=== PATIENT | female | born 1950 | race Caucasian/White ===

== ENCOUNTER → 2016-11-13 | Outpatient (CLI) | payer MEDICARE ==
--- NOTE | 2016-11-13 22:17 | CT ---
EXAMINATION TYPE: CT brain wo con DATE OF EXAM: 11/13/2016 7:11 PM COMPARISON: 11/14/2013 INDICATION: Episode of blurred vision and lightheadedness 7 days ago. DLP: 1195.00 mGycm, Automated exposure control for dose reduction was used. CONTRAST: None CT of the brain is performed utilizing 3 mm thick sections through the posterior fossa and 3 mm thick sections through the remaining calvarium. Study is performed within 24 hours of arrival to the hosp [facility]. No abnormal hyperdensity is present to suggest an acute intracranial hemorrhage. No mass lesion is evident. No acute infarcts are evident. There is an old left occipital lobe infarct. Ventricles and sulci are appropriate for the patient age. Paranasal sinuses and mastoid air cells within the [id number] are clear. IMPRESSIONS: 1. Old left occipital lobe infarct.
== END | disposition home or self-care (01) ==
LOC: RADCTMAIN 18:52
PROVIDERS: ATTEND Internal Medicine
DX: H53.8 Other visual disturbances (principal); Z86.73 Personal history of transient ischemic attack (TIA), and cerebral infarction without residual deficits
CPT/HCPCS: 70450

== ENCOUNTER → 2017-09-01 | Outpatient (CLI) | payer MEDICARE ==
--- NOTE | 2017-09-01 11:23 | XR ---
EXAMINATION TYPE: XR tibia fibula RT DATE OF EXAM: 09/01/2017 CLINICAL HISTORY: pain TECHNIQUE: AP and lateral images of the right tibia and fibula are obtained. COMPARISON: None. FINDINGS: There is no acute fracture/dislocation evident. The joint spaces appear within normal gastelum its. No radiopaque foreign body identified. IMPRESSION: There is no acute fracture or dislocation seen. ICD 10 NO FRACTURE, INITIAL EVALUATION
== END | disposition home or self-care (01) ==
LOC: RADXRMAIN 10:59
PROVIDERS: ATTEND Emergency Medicine
DX: S80.11XA Contusion of right lower leg, initial encounter (principal)

== ENCOUNTER → 2018-07-03 | Outpatient (CLI) | payer OTHER, MEDICARE ==
[2018-07-03 11:00] LABS: HCT 44.5 % (34.0-46.0); HGB 15.3 gm/dL (11.4-16.0); MCH 33.9 pg (25.0-35.0); MCHC 34.3 g/dL (31.0-37.0); MCV 98.9 fL (80.0-100.0); Mean Platelet Volume 6.8; Platelet Count 263 k/uL (150-450); RDW 13.7 % (11.5-15.5); WBC 5.5 k/uL (3.8-10.6)
[2018-07-03 11:05] LABS: INR 1.2 (<1.2); Prothrombin Time 12.2 sec (9.0-12.0)
[2018-07-03 12:03] LABS: Erythrocyte Sedimentation Rate 44 mm/hr (0-20)
[2018-07-03 16:53] LABS: Rheumatoid Factor 6 IU/mL (0-15)
[2018-07-03 17:07] LABS: Albumin 4.3 g/dL (3.80-4.90); Albumin/Globulin Ratio 1.79 (1.20-2.10); Bilirubin, Conjugated 0.2 mg/dL (0.20-0.40); Bilirubin,Unconjugated 0.5 mg/dL; C Reactive Protein 1.1 mg/dL (0.0-0.8); Globulin 2.4 g/dL (2.1-3.7); Total Bilirubin 0.7 mg/dL (0.3-1.2); Total Protein 6.7 g/dL (6.2-8.2); Uric Acid 5.5 mg/dL (2.9-7.7)
[2018-07-03 18:03] LABS: Hepatitis A Antibody IgM Non-Reactive (Non-Reactive); Hepatitis B Core IgM Non-Reactive (Non-Reactive)
== END | disposition home or self-care (01) ==
LOC: LABWHC1 10:20
PROVIDERS: ATTEND Internal Medicine
DX: M25.571 Pain in right ankle and joints of right foot (principal); Z20.5 Contact with and (suspected) exposure to viral hepatitis; Z79.899 Other long term (current) drug therapy
CPT/HCPCS: 36415; 80074; 80076; 84550; 85027; 85610; 85652; 86140; 86431

== ENCOUNTER → 2018-10-04 | Outpatient (CLI) | payer OTHER, MEDICARE ==
--- NOTE | 2018-10-05 10:01 | US ---
EXAMINATION TYPE: US pelvis complete transvag DATE OF EXAM: 10/04/2018 COMPARISON: NONE CLINICAL HISTORY: N94.10 dyspareunia N95.0Postmenopausal. Pt states light vaginal bleeding x 1 month, not on HRT's TECHNIQUE: Transvaginal (TV) and Transabdominal (TA) . Transabdominal sonographic images of the pel vis were acquired. Transvaginal sonographic images were medically necessary to better assess the fol lowing anatomy: Uterus, ovaries and endometrium Date of LMP: 15 years ago EXAM MEASUREMENTS: Uterus: 8.8 x 3.4 x 4.4 cm Endometrial Stripe: 0.7 cm Large pt body habitus, difficult to penetrate TA and TV 1. Uterus: Anteverted Heterogeneous 2. Endometrium: Thickened for postmenopausal 3. Right Ovary: Obscured by overlying bowel gas 4. Left Ovary: Obscured by overlying bowel gas 5. Bilateral Adnexa: wnl 6. Posterior cul-de-sac: wnl IMPRESSION: 1. Endometrium is thickened for a postmenopausal female measuring 7 mm. Direct visualization is recom mended. 2. Uterine myometrium is slightly heterogenous although no discrete leiomyomas are seen. 3. Nonvisualization of the ovaries, obscured by bowel gas.
== END | disposition home or self-care (01) ==
LOC: RADUSWWP 16:20
PROVIDERS: ATTEND Obstetrics & Gynecology
DX: N95.0 Postmenopausal bleeding (principal); N94.10 Unspecified dyspareunia
CPT/HCPCS: 76830; 76856

== ENCOUNTER → 2018-10-29 | Outpatient (CLI) | payer OTHER, MEDICARE ==
[2018-10-29 18:01] LABS: INR 2.2 (<1.2); Prothrombin Time 21.5 sec (9.0-12.0)
== END | disposition home or self-care (01) ==
LOC: LABWHC1 17:30
PROVIDERS: ATTEND Internal Medicine
DX: Z51.81 Encounter for therapeutic drug level monitoring (principal); Z79.01 Long term (current) use of anticoagulants
CPT/HCPCS: 36415; 85610

== ENCOUNTER → 2019-02-11 | Outpatient (CLI) | payer MEDICARE ==
--- NOTE | 2019-02-11 13:54 | US ---
EXAMINATION TYPE: US venous doppler duplex LE RT DATE OF EXAM: 02/11/2019 1:34 PM COMPARISON: NONE CLINICAL HISTORY: M79.661,R22.41 PAIN AND SWELLING IN RT LEG. Right leg pain SIDE PERFORMED: Right TECHNIQUE: The lower extremity deep venous system is examined utilizing real time linear array sonog twan with graded compression, doppler sonography and color-flow sonography. VESSELS IMAGED: External Iliac Vein (EIV) Common Femoral Vein Deep Femoral Vein Greater Saphenous Vein * Femoral Vein Popliteal Vein Small Saphenous Vein * Proximal Calf Veins (* superficial vessels) Grayscale, color doppler, spectral doppler imaging performed of the deep veins of the right lower ext remity. There is normal flow, compressibility, vascular waveforms. Right Leg: Negative for DVT No evidence of DVT right leg. IMPRESSION: No sonographic evidence of deep venous thrombosis within the right lower extremity.
== END | disposition home or self-care (01) ==
LOC: RADUSWWP 13:02
PROVIDERS: ATTEND Internal Medicine
DX: R22.41 Localized swelling, mass and lump, right lower limb (principal); M79.661 Pain in right lower leg

== ENCOUNTER → 2019-04-13 | Outpatient (CLI) | payer MEDICARE ==
[2019-04-13 11:52] LABS: INR 1.8 (<1.2)
[2019-04-13 11:53] LABS: Prothrombin Time 17.4 sec (9.0-12.0)
[2019-04-13 12:05] LABS: HCT 42.7 % (34.0-46.0); HGB 14.5 gm/dL (11.4-16.0); MCH 33.4 pg (25.0-35.0); MCHC 33.9 g/dL (31.0-37.0); MCV 98.5 fL (80.0-100.0); Mean Platelet Volume 6.8; Platelet Count 281 k/uL (150-450); RBC 4.34 m/uL (3.80-5.40); RDW 14.1 % (11.5-15.5); WBC 4.9 k/uL (3.8-10.6)
[2019-04-13 21:44] LABS: African American GFR (CKD) 102.5 (60.0-200.0); Potassium 4.7 mmol/L (3.5-5.5)
[2019-04-15 14:06] LABS: Lyme IgG/IgM 0.86 Index
== END | disposition home or self-care (01) ==
LOC: LABWHC1 10:55
PROVIDERS: ATTEND Internal Medicine
DX: R50.9 Fever, unspecified (principal)
CPT/HCPCS: 36415; 80051; 82565; 84520; 85027; 85610; 86618; 87040

== ENCOUNTER → 2019-06-30 | Outpatient (CLI) | payer MEDICARE ==
--- NOTE | 2019-06-30 12:14 | CONS ---
CONSULTATION DATE OF SERVICE: 06/30/2019 A 69-year-old lady who has been evaluated in the Sleep Center for obstructive sleep apnea-hypopnea syndrome. HISTORY OF PRESENT ILLNESS/SLEEP-WAKE EVALUATION: Patient has been diagnosed in our Sleep Center with extremely severe obstructive sleep apnea in 2013. At that time, apnea-hypopnea index more than 81. Since that time patient is on treatment with CPAP and she continued to use treatment every night. Her sleep schedule from 10 - 12 midnight until 6 to 8 am. She wakes up from sleep up to 2 times with nocturia. She may take one nap during the day. [place] Sleepiness Scale is 4. PAST MEDICAL HISTORY: Patient continued to have atrial fibrillation, history of hypertension, stroke with changing of visual reyes, macular degeneration, gout. History of anal anal cancer status post chemotherapy and radiation in 2007. PAST SURGICAL HISTORY: Permanent pacemaker insertion, surgery on ocular. MEDICATIONS: Allopurinol, metoprolol, Warfarin and gabapentin. SOCIAL HISTORY: Positive for occasional smoking. Alcohol consumption rarely. FAMILY HISTORY: Hypertension, stroke, asthma, cancer, snoring. REVIEW OF SYSTEMS: Sometimes sleepiness during the day, episodes of nocturia. PHYSICAL EXAM: lady without distress, BP 150/83, HR 60, RR 16, height 5, 6-1/2, weight 278.8, body mass index 44.5, temperature 97.8, oxygen saturation at room air 98%. OROPHARYNX: Low position of soft palate Mallampati 3. Restriction of nasal breathing, especially on the left side. Wide neck 16 inches in circumference. HEART: Irregular heart tones. EXTREMITIES: Up to 1+ bilateral ankle edema. I checked patient's CPAP unit. CPAP pressure is 10 cm of water. Usage is every night more than 4 hours with average usage 8.9 hours per night. Machine does not have information about apnea-hypopnea index. IMPRESSION: 1. Extremely severe obstructive sleep apnea-hypopnea syndrome by results of sleep study in 2013. Patient continued to use her CPAP equipment every night but wake up with nocturia. She has episodes of excessive daytime sleepiness. 2. Low position of soft palate, wide neck, obstructive sleep apnea-hypopnea syndrome. 3. Obesity, body mass index 44.5. 4. Atrial fibrillation. 5. History of stroke. 6. Hypertension. 7. History of macular degeneration. 8. Status post macular surgery. 9. History of gout. 10.Status post permanent pacemaker insertion. 11.History of anal CA, status post chemotherapy and radiation therapy. PLAN: 1. CPAP titration for evaluation of effective CPAP pressure at the present time. Last titration more than 5 years ago. Patient continued to have atrial fibrillation and hypertension. 2. Losing weight. 3. Sleep hygiene with regular time in bed for at least 7-1/2 to 8 hours. 4. No driving if feeling sleepiness. Thank you very much for allowing me to participate in the management of your patient. Sincerely, Harshil Kennedy MD, PhD, FAASM Diplomat of [place] Materials Engineer of [facility] [place] MMODL / IJN: [id number] /
== END ==
LOC: SLEEP 10:12
PROVIDERS: ATTEND Internal Medicine
DX: G47.33 Obstructive sleep apnea (adult) (pediatric) (principal); R35.1 Nocturia; E66.9 Obesity, unspecified; I48.91 Unspecified atrial fibrillation; I10 Essential (primary) hypertension; H35.30 Unspecified macular degeneration; M10.9 Gout, unspecified; Z98.890 Other specified postprocedural states; Z86.73 Personal history of transient ischemic attack (TIA), and cerebral infarction without residual deficits; Z92.3 Personal history of irradiation; Z99.89 Dependence on other enabling machines and devices; Z68.41 Body mass index [BMI] 40.0-44.9, adult; Z92.21 Personal history of antineoplastic chemotherapy; F17.200 Nicotine dependence, unspecified, uncomplicated; Z79.01 Long term (current) use of anticoagulants; Z79.899 Other long term (current) drug therapy
CPT/HCPCS: 99211

== ENCOUNTER → 2020-03-08 | Outpatient (CLI) | payer MEDICARE ==
--- NOTE | 2020-03-09 07:09 | SFUN ---
SLEEP CENTER FOLLOW UP NOTE DATE OF SERVICE: 03/08/2020 This 70-year-old lady has been followed in Sleep Center for treatment of obstructive sleep apnea-hypopnea syndrome. The patient successfully continuing to use her equipment every night for the whole night. [place] Sleepiness Scale today is only 3, which is normal. I checked her CPAP unit. CPAP pressure is 10 cm of water. Usage is 27 out of 30 nights for more than 4 hours which is great compliance. Leak is 17 L/minute which is borderline. Apnea-hypopnea index is 1.4, which is absolutely normal. MEDICATIONS: Allopurinol, metoprolol, warfarin, gabapentin. PHYSICAL EXAMINATION: GENERAL: Patient in no distress. VITAL SIGNS: BP 131/81, HR 67, RR 15, weight 282.6 pounds, temperature 97.8, oxygen saturation on room air 94%., HEENT: PERRLA, EOMI, evaluation of oropharynx showed tongue protrudes midline. NECK: Supple, no JVD. Thyroid is not palpable. LUNGS: Clear to percussion and to auscultation. Good air exchange. No wheezing or rhonchi. HEART: S1, S2 regular. No murmurs, gallops, or rubs. ABDOMEN: Obese. EXTREMITIES: No clubbing or cyanosis. INSULATION ENGINEMAN: Awake, alert, and oriented X3. Cranial nerves 2 to 7 intact. There is no fasciculation or atrophy. noted. No focal deficits observed. IMPRESSION: 1. Obstructive sleep apnea-hypopnea syndrome. Patient demonstrated great compliance with treatment, benefitting from treatment. 2. Obesity. 3. History of atrial fibrillation. 4. History of stroke. 5. Hypertension. 6. History of gout. 7. History of macular degeneration, status post macular surgery. 8. Status post permanent pacemaker insertion. 9. History of anal carcinoma, status post chemotherapy and radiation therapy. PLAN: 1. Patient will continue to use PAP equipment every night for the whole night. 2. Sleep hygiene with regular time in bed for at least 7-1/2 to 8 hours. 3. Precautions related to driving. No driving if feeling sleepiness. 4. I will maintain all necessary prescription for PAP supplies including mask, tube, filters. 5. Watching weight. 6. No driving if feeling sleepiness. 7. Follow-up visit in 6 months or earlier if patient has any problems. Thank you very much for allowing me to participate in management of your patient. Sincerely, Harshil Kennedy MD, PhD, FAASM Diplomat of [employer] Development Expert of [facility] [place] SHILPA / SHYAM: [id number] /
== END | disposition home or self-care (01) ==
LOC: SLEEP 16:22
PROVIDERS: ATTEND Internal Medicine
DX: G47.33 Obstructive sleep apnea (adult) (pediatric) (principal); E66.9 Obesity, unspecified; I10 Essential (primary) hypertension; Z86.73 Personal history of transient ischemic attack (TIA), and cerebral infarction without residual deficits; Z86.79 Personal history of other diseases of the circulatory system; Z87.39 Personal history of other diseases of the musculoskeletal system and connective tissue; Z86.69 Personal history of other diseases of the nervous system and sense organs; Z85.048 Personal history of other malignant neoplasm of rectum, rectosigmoid junction, and anus; Z92.21 Personal history of antineoplastic chemotherapy; Z92.3 Personal history of irradiation; Z95.0 Presence of cardiac pacemaker; Z79.01 Long term (current) use of anticoagulants; Z79.899 Other long term (current) drug therapy

== ENCOUNTER → 2020-04-05 | Outpatient (CLI) | payer MEDICARE ==
[2020-04-05 15:22] LABS: Basophils # (A) 0.1 k/uL (0-0.2); Basophils % (A) 1 %; Eosinophils # (A) 0.1 k/uL (0-0.7); Eosinophils % (A) 2 %; HCT 46.3 % (34.0-46.0); HGB 15.2 gm/dL (11.4-16.0); Lymphocytes # (A) 1.6 k/uL (1.0-4.8); Lymphocytes % (A) 30 %; MCHC 32.8 g/dL (31.0-37.0); MCV 100.7 fL (80.0-100.0); Macrocytosis Slight; Mean Platelet Volume 7.4; Monocytes # (A) 0.4 k/uL (0-1.0); Monocytes % (A) 7 %; Neutrophils # (A) 3.1 k/uL (1.3-7.7); Neutrophils % (A) 58 %; Platelet Count 251 k/uL (150-450); RDW 13.7 % (11.5-15.5); WBC 5.3 k/uL (3.8-10.6)
[2020-04-06 01:16] LABS: African American GFR (CKD) 86.6 (60.0-200.0); Albumin 4.2 g/dL (3.80-4.90); Albumin/Globulin Ratio 1.83 (1.60-3.17); Anion Gap 9.7 mmol/L (4.00-12.00); Calcium 9.4 mg/dL (8.7-10.3); Carbon Dioxide 25.3 mmol/L (21.6-31.8); Chol/HDL Ratio 3.98; Globulin 2.3 g/dL (1.6-3.3); Non-African American GFR(CKD) 74.7 (60.0-200.0); Potassium 4.5 mmol/L (3.5-5.5); Total Bilirubin 0.7 mg/dL (0.2-1.2); Total Protein 6.5 g/dL (6.2-8.2); Uric Acid 6.6 mg/dL (2.9-7.7)
[2020-04-06 04:39] LABS: INR 1.92 (0.90-1.11)
== END | disposition home or self-care (01) ==
LOC: LABWHC1 14:23
PROVIDERS: ATTEND Internal Medicine
DX: I10 Essential (primary) hypertension (principal); M10.9 Gout, unspecified; M79.89 Other specified soft tissue disorders; Z79.01 Long term (current) use of anticoagulants
CPT/HCPCS: 36415; 80053; 80061; 84550; 85025; 85610

== ENCOUNTER → 2021-05-29 | Outpatient (CLI) | payer MEDICARE ==
--- NOTE | 2021-05-30 08:40 | SFUN ---
SLEEP CENTER FOLLOW UP NOTE DATE OF SERVICE: 05/29/2021 This 71-year-old lady has been followed in Sleep Center for treatment of obstructive sleep apnea-hypopnea syndrome. I saw the patient about 15 months ago. She continues to use her CPAP equipment every night, getting her supplies on time. [place] Sleepiness Scale today is only 2, which is perfect. I checked her CPAP unit. Pressure is 10 cm of water, usage 28/30 nights. Average usage 6 hours per night. Leak is 11 L/minute, which is normal. Apnea-hypopnea index is 1.3 which is perfect. MEDICATIONS: 1. Metoprolol 50 mg twice a day. 2. Warfarin 0.5 mg once a day. 3. Gabapentin 100 mg once a day. 4. Allopurinol 100 mg once a day. PHYSICAL EXAMINATION: GENERAL: Pleasant patient in no distress. VITAL SIGNS: BP 147/89, HR 85, RR 18, height 5 feet 6 inches, weight 269.6, temperature 97.0, oxygen saturation at room air 95%. HEENT: PERRLA, EOMI, evaluation of oropharynx showed tongue protrudes midline. NECK: Supple, no JVD. Thyroid is not palpable. LUNGS: Clear to percussion and to auscultation. Good air exchange. No wheezing or rhonchi. HEART: S1, S2 regular. No murmurs, gallops, or rubs. ABDOMEN: Soft and nontender. Bowel sounds are present. No organomegaly appreciated. EXTREMITIES: No clubbing or cyanosis. COMPUTATIONAL SCIENCES PROFESSOR: Awake, alert, and oriented X3. Cranial nerves 2 to 7 intact. There is no fasciculation or atrophy. noted. No focal deficits observed. IMPRESSION: 1. Obstructive sleep apnea-hypopnea syndrome. Patient demonstrated good compliance with treatment, benefitting from treatment. 2. History of atrial fibrillation. 3. Obesity. 4. History of stroke. 5. Hypertension. 6. History of gout. 7. History of macular degeneration, status post macular surgery. 8. Status post permanent pacemaker insertion. 9. History of an anal carcinoma, status post chemotherapy and radiation therapy. PLAN: 1. Patient will continue to use PAP equipment every night for the whole night. 2. Sleep hygiene with regular time in bed for at least 7-1/2 to 8 hours. 3. Precautions related to driving. No driving if feeling sleepiness. 4. I will maintain all necessary prescription for PAP supplies including mask, tube, filters. 5. Watching weight. 6. Follow-up visit in 6 months or earlier if patient has any problems. Thank you very much for allowing me to participate in the management of your patient. Sincerely, Harshil Kennedy MD, PhD, FAASM Diplomat of [employer] [place] [employer] Sleep Medicine Board of [employer] [place] [employer] Dubbing Machine Operator of [facility] [place] MMODL / EBERN: [id number] /
== END ==
LOC: SLEEP 16:23
PROVIDERS: ATTEND Internal Medicine
DX: G47.33 Obstructive sleep apnea (adult) (pediatric) (principal); E66.9 Obesity, unspecified; I48.91 Unspecified atrial fibrillation; I10 Essential (primary) hypertension; F17.200 Nicotine dependence, unspecified, uncomplicated; Z95.0 Presence of cardiac pacemaker; Z86.73 Personal history of transient ischemic attack (TIA), and cerebral infarction without residual deficits; Z87.39 Personal history of other diseases of the musculoskeletal system and connective tissue; Z86.69 Personal history of other diseases of the nervous system and sense organs; Z85.048 Personal history of other malignant neoplasm of rectum, rectosigmoid junction, and anus; Z79.01 Long term (current) use of anticoagulants; Z99.89 Dependence on other enabling machines and devices; Z98.890 Other specified postprocedural states

== ENCOUNTER → 2021-08-20 | Outpatient (CLI) | payer MEDICARE ==
--- NOTE | 2021-08-20 22:45 | BD ---
EXAMINATION TYPE: Axial Bone Density DATE OF EXAM: 08/20/2021 COMPARISON: Prior DEXA bone scan 2015. CLINICAL HISTORY: Postmenopausal female. Height: 5 FT 6 IN Weight: 271 FRAX RISK QUESTIONS: Alcohol (3 or more units per day): NO Family History (Parent hip fracture): NO Glucocorticoids (More than 3mos): NO (Ex: prednisone, prednisolone, methylprednisolone, dexamethasone, and hydrocortisone). History of Fracture in Adulthood: NO Secondary Osteoporosis: 1. Type 1 Diabetes: NO 2. Hyperthyroidism: NO 3. Menopause before 45: NO 4. Malnutrition: NO 5. Chronic liver disease: NO Rheumatoid Arthritis: NO Current Tobacco Use: YES RISK FACTORS HISTORY OF: Surgery to Spine/Hip(right/left)/Wrist (right/left): NO Family History of Osteoporosis: NO Active: YES Diet low in dairy products/other sources of calcium: NO Postmenopausal woman: YES Take estrogen and/or progesterone medications: NO Lost more than 2 inches in height since high school: YES Frequent falls: NO Poor Health: GOOD Hyperparathyroidism: NO Adrenal Insufficiency: NO MEDICATIONS: Additional Medications: METOPROLOL, WARFARIN, ALLOPURINOL, GABAPENTIN, Additional History: PACEMAKER EXAM MEASUREMENTS: Bone mineral densitometry was performed using the [employer] System. Bone mineral density as measured about the Lumbar spine is: ----- L1-L4(G/cm2): 1.306 T Score Values are as follows: ----- L2: 0.8 ----- L3: 0.7 ----- L4: 1.4 ----- L1-L4: 1.0 Bone mineral density has: INCREASED 2.9% since study of: 2015 Bone mineral density about the R hip (g/cm2): 1.053 Bone mineral density about the L hip (g/cm2): 1.032 T Score values are as follows: -----R Neck: 0.1 -----L Neck: 0.0 -----R Total: 0.4 -----L Total: 0.5 Bone mineral density has: DECREASED -5.4 % since study of: 2015 IMPRESSION: Normal (Values between +1 and -1 indicate normal bone mass). Consider repeating this study in 5 year s or sooner if there is some new clinical indication. NOTE: T-SCORE=SD OF THE YOUNG ADULT MEAN.
--- NOTE | 2021-08-21 12:08 | MM ---
Reason for exam: screening (asymptomatic). Last mammogram was performed 2 years and 4 months ago. History: Patient is postmenopausal, has history of other cancer at age 59, and had first child at age 33. Took hormonal contraceptives for 4 years. Physical Findings: A clinical breast exam by your physician is recommended on an annual basis and results should be correlated with mammographic findings. MG 3D Screening Mammo W/Cad Bilateral CC and MLO view(s) were taken. Prior study comparison: April 04, 2019, bilateral MG 3d screening mammo w/cad. May 29, 2016, bilateral MG 3d screening mammo w/cad. There are scattered fibroglandular densities. Generator device partially visualized left MLO view. No significant changes when compared with prior studies. ASSESSMENT: Negative, BI-RAD 1 RECOMMENDATION: Routine screening mammogram of both breasts in 1 year.
== END | disposition home or self-care (01) ==
LOC: RADMAMWWP 14:17
PROVIDERS: ATTEND Obstetrics & Gynecology
DX: Z12.31 Encounter for screening mammogram for malignant neoplasm of breast (principal); Z78.0 Asymptomatic menopausal state
CPT/HCPCS: 77063; 77067; 77080

== ENCOUNTER → 2021-12-17 | Outpatient (CLI) | payer MEDICARE ==
--- NOTE | 2021-12-17 15:06 | US ---
EXAMINATION TYPE: US pelvis complete transvag DATE OF EXAM: 12/17/2021 COMPARISON: US dated 10/04/2018 CLINICAL HISTORY: R10.2 pelvic pain. TECHNIQUE: Transvaginal (TV) and Transabdominal (TA) . Transabdominal sonographic images of the pel vis were acquired. Transvaginal sonographic images were medically necessary to better assess the fol lowing anatomy: uterus Date of LMP: postmenopausal EXAM MEASUREMENTS: Uterus: 9.7 x 6.3 x 6.4 cm Endometrial Stripe: 2.6 cm Right Ovary: not visualized Left Ovary: not visualized 1. Uterus: Anteverted not well seen in its entirety. 2. Endometrium: grossly thickened, with fluid noted within. 3. Right Ovary: not visualized 4. Left Ovary: not visualized 5. Bilateral Adnexa: wnl 6. Posterior cul-de-sac: no free fluid IMPRESSION: Abnormal endometrium, consider endometrial biopsy. Limited exam.
== END | disposition home or self-care (01) ==
LOC: RADUSWWP 13:51
PROVIDERS: ATTEND Obstetrics & Gynecology
DX: N85.8 Other specified noninflammatory disorders of uterus (principal); R93.89 Abnormal findings on diagnostic imaging of other specified body structures
CPT/HCPCS: 76830; 76856

== ENCOUNTER → 2022-01-22 | Outpatient (CLI) | payer MEDICARE ==
--- NOTE | 2022-01-22 15:25 | XR ---
EXAMINATION TYPE: XR chest 2V DATE OF EXAM: 01/22/2022 COMPARISON: Chest x-ray 11/02/2013 HISTORY: Dyspnea TECHNIQUE: Frontal and lateral views of the chest are obtained. FINDINGS: There is no focal air space opacity, pleural effusion, or pneumothorax seen. The cardiac silhouette size is within normal limits. There is a generator in left pectoral region, leads in the r ight atrium and ventricle are stable. There are overlying artifacts. The osseous structures are inta ct, there is thoracic spondylosis. IMPRESSION: No acute cardiopulmonary process.
== END | disposition home or self-care (01) ==
LOC: RADXRMAIN 14:44
PROVIDERS: ATTEND Internal Medicine
DX: R06.00 Dyspnea, unspecified (principal)
CPT/HCPCS: 71046

== ENCOUNTER → 2022-01-27 | Outpatient (CLI) | payer MEDICARE ==
[2022-01-27 12:21] LABS: African American GFR (CKD) >90 (>60 ml/min/1.73 sqM); Blood Urea Nitrogen 18 mg/dL (7-17); Non-African American GFR(CKD) 89 (>60 ml/min/1.73 sqM)
--- NOTE | 2022-01-27 13:50 | CT ---
EXAMINATION TYPE: CT abdomen pelvis w con CT DLP: 3243.5 mGycm, Automated exposure control for dose reduction was used. DATE OF EXAM: 01/27/2022 12:45 PM COMPARISON: Pelvic ultrasound 12/17/2021 CLINICAL INDICATION:Female, 71 years old with history of R10.9 abdominal pelvic pain; Abdominal diste ntion, pain and fever on and off TECHNIQUE: Standard CT of the abdomen and pelvis following the administration of 70 cc of Isovue 30 0 IV contrast material and oral contrast. Coronal and sagittal reformats were performed. FINDINGS: LOWER CHEST: Right middle lobe scarring and/or atelectasis. Partial visualization of cardiac pacing l ead. ABDOMEN LIVER: Dysmorphic appearance without overt cirrhotic morphology. No suspicious hepatic lesion. GALLBLADDER AND BILE DUCTS: Under distended gallbladder with cholelithiasis present. No biliary ducta l dilatation. PANCREAS: Unremarkable. SPLEEN: Unremarkable. ADRENAL GLANDS: Unremarkable. KIDNEYS AND URETERS: No evidence of hydronephrosis or renal calculus. The ureters are unremarkable. PELVIS BLADDER: Under distended, limiting evaluation. REPRODUCTIVE: Endometrial thickening measuring up to 2.3 cm. ABDOMEN & PELVIS STOMACH AND BOWEL: Stomach and duodenum are unremarkable. Scattered colonic diverticulosis without ev idence for acute diverticulitis.No evidence of bowel obstruction. PERITONEUM: Soft tissue ventral abdominal omental caking identified (series 3, image 43). No evidence of pneumoperitoneum. Small to moderate volume ascites throughout pattern and pelvis. VASCULATURE: No evidence of aortic aneurysm. MUSCULOSKELETAL: No acute osseous abnormalities. Mild disc degeneration changes are present throughou t the thoracolumbar spine. No suspicious osseous lesions LYMPH NODES: No gross evidence for lymphadenopathy. SOFT TISSUE/ABDOMINAL WALL: Lower ventral anterior abdominal subcutaneous tissue fat stranding identi fied. There is associated skin thickening. IMPRESSION: * Abnormal endometrial thickening for postmenopausal patient with findings of small to moderate volu me ascites and omental caking. This is concerning for possible endometrial carcinoma with peritoneal metastasis. Further oncologic workup is recommended. * Skin thickening with central anterior abdomen wall subcutaneous fat stranding which can be seen in the setting of cellulitis.
== END | disposition home or self-care (01) ==
LOC: RADCTMAIN 10:45
PROVIDERS: ATTEND Internal Medicine
DX: R93.89 Abnormal findings on diagnostic imaging of other specified body structures (principal); R18.8 Other ascites
CPT/HCPCS: 82565; 84520; 74177; 36415; Q9967 ×2

== ENCOUNTER → 2022-02-18 | Outpatient (CLI) | payer MEDICARE ==
[2022-02-18 13:12] LABS: African American GFR (CKD) >90 (>60 ml/min/1.73 sqM); Blood Urea Nitrogen 20 mg/dL (7-17); Non-African American GFR(CKD) 88 (>60 ml/min/1.73 sqM)
--- NOTE | 2022-02-18 14:19 | CT ---
EXAMINATION TYPE: CT chest w con CT DLP: 477 mGycm, Automated exposure control for dose reduction was used. DATE OF EXAM: 02/18/2022 2:04 PM COMPARISON: CT abdomen pelvis on 06/08/2022. CLINICAL INDICATION:Female, 71 years old with history of C54.9 Endometrial ca; TECHNIQUE: Multiple axial images were obtained through the chest. Sagittal and coronal reformats were created for review. Contrast used: 100 cc of Isovue 300 Oral contrast used: none. FINDINGS: LUNGS/ PLEURA: Persistent left trace pleural effusion. There is a pulmonary nodule next to the minor fissure in the right upper lobe measuring 5 mm. Additional peripheral areas are seen along the pleura l effusion on the left favored to represent atelectasis. AIRWAY: Patent and unremarkable. HEART: Size within normal limits. MEDIASTINUM: No gross evidence of adenopathy. Epicardial fat lymph nodes which are less than 1 cm in short axis including right epicardial fat 8 mm in short axis lymph node on series 3 image 41 VASCULATURE: No aortic aneurysm. No evidence of pulmonary embolus. There is left cardiac conduction leads terminating in the right atrium and right ventricle. MUSCULOSKELETAL: No acute osseous abnormalities, mild multilevel disc degeneration changes no suspici ous osseous lesion definitively visualized. SOFT TISSUES/LYMPH NODES: Unremarkable. LOWER NECK: No significant findings. UPPER ABDOMEN: Diffuse low-attenuation to the liver parenchyma. There is free fluid seen within the u pper abdomen. Hazy appearance to the omentum noted, similar to prior CT abdomen pelvis 01/27/2022. IMPRESSION: 1. No evidence for acute process within the chest. 2. 5 mm pulmonary nodule within the right upper lobe, otherwise no convincing evidence for metastati c disease within the thorax. 3. Similar trace left pleural effusion. 4. Similar abdominal ascites with suspected omental caking. 5. Hepatic steatosis. 6. Nonenlarged right epicardial fat lymph nodes, attention on follow-up imaging.
== END | disposition home or self-care (01) ==
LOC: RADCTMAIN 12:17
PROVIDERS: ATTEND Internal Medicine Hematology & Oncology
DX: C54.9 Malignant neoplasm of corpus uteri, unspecified (principal); K76.0 Fatty (change of) liver, not elsewhere classified; J90 Pleural effusion, not elsewhere classified
CPT/HCPCS: 82565; 84520; 71260; 36415; Q9967

== ENCOUNTER 2022-02-25 12:25 | Day surgery (SDC) | payer MEDICARE ==
[2022-02-25 13:11] VITALS: TEMP 97.5
[2022-02-25 13:11] LABS: Mean Platelet Volume 8.2; Platelet Count 214 k/uL (150-450)
[2022-02-25 13:12] LABS: Prothrombin Time 10.9 sec (9.0-12.0)
[2022-02-25 15:48] VITALS: BP 124/77; PULSE 72; RESP 20
--- NOTE | 2022-02-26 10:13 | US ---
Ultrasound-guided paracentesis. DATE OF EXAM: 02/25/2022 CLINICAL HISTORY: Ascites The procedure was discussed with the patient. The risks, complications, benefits, and alternatives we re discussed and any questions were answered. Informed consent was obtained. The patient was placed s upine on the ultrasound table and prepped and draped in the usual sterile fashion. All elements of maximal barrier technique were utilized. Under ultrasound guidance, access into the right lower quadrant was obtained, via the paracentesis catheter system and direct ultrasound guidanc e. Approximately 1.5 liters of straw-colored fluid was removed. The patient was stable throughout the pr ocedure and remained stable upon discharge from Department of Radiology. IMPRESSION: Successful paracentesis under ultrasound guidance.
== END 2022-02-25 15:30 | disposition home or self-care (01) ==
LOC: RADPROMAIN 12:25
PROVIDERS: ATTEND Internal Medicine Hematology & Oncology
DX: R18.8 Other ascites (principal)
CPT/HCPCS: 36415; 49083; 85049; 85610

== ENCOUNTER 2022-02-26 18:39 | Emergency (ER) | payer MEDICARE ==
[2022-02-26 19:25] VITALS: TEMP 98.4
--- NOTE | 2022-02-26 20:05 | XR ---
EXAMINATION TYPE: XR KUB DATE OF EXAM: 02/26/2022 7:52 PM INDICATION: Patient age:Female; 72 years old; Reason for study: abdominal pain, constipation COMPARISON: CT abdomen pelvis 01/27/2022. TECHNIQUE: One radiographic view of the abdomen was obtained. FINDINGS: Moderate stool burden seen most pronounced on the left. Partial visualization of cardiac co nduction leads. No abnormal calcifications. No evidence fracture. Multilevel disc degeneration spine with dextroscoliosis apex L3. Circular opacity within the abdomen consistent with known cholelithiasi s. IMPRESSION: 1. Nonspecific bowel gas pattern without radiographic evidence for acute process. 2. Moderate stool burden.
[2022-02-26] MEDS ORDERED: ONDANSETRON 4 MG/2 ML VIAL IVP STA (22:13)
[2022-02-26] MEDS ORDERED: SODIUM CHLORIDE 0.9% 1,000 ML IV STA (22:14)
[2022-02-26 22:17] VITALS: BP 135/73; PULSE 79; RESP 20
--- NOTE | 2022-02-26 22:18 | ED ---
Abdominal Pain HPI - General Source: patient, family, RN notes reviewed Mode of arrival: wheelchair Limitations: no limitations - History of Present Illness MD Complaint: abdominal pain Onset/Timin -: days(s) Location: diffuse Associated Symptoms: nausea, vomiting, constipation <Sylvia Viera - Last Filed: 02/27/22 00:18> <Boyd Schrader - Last Filed: 02/27/22 02:02> - General Chief Complaint: Abdominal Pain Stated Complaint: sent by possible bowel obstruction Time Seen by Provider: 02/26/22 22:03 - History of Present Illness Initial Comments: This is a 72-year-old female who presents to the emergency department per the instruction of Dr. Hernández, oncology, for concerns of a bowel obstruction. She was diagnosed with endometrial cancer approximately 3 weeks ago and had her first round of chemotherapy 5 days ago. She has not had a bowel movement in 3 d ays and is experiencing severe and diffuse abdominal pain. She is passing little to no gas and has had severe nausea and vomiting. Also states that she feels very bloated. Denies any fevers, chills, sore throat, cough, dyspnea, chest pain, palpitations, diarrhea, back pain, or headaches. (Sylvia Viera) - Related Data Home Medications Medication Instructions Recorded Confirmed Metoprolol Succinate [Toprol XL] 50 mg PO DAILY 09/27/15 02/26/22 Apixaban [Eliquis] 5 mg PO BID 02/24/22 02/26/22 allopurinoL 100 mg PO DAILY 02/24/22 02/26/22 Metoprolol Succinate (ER) [Toprol 25 mg PO HS 02/26/22 02/26/22 Xl] Allergies Allergy/AdvReac Type Severity Reaction Status Date / Time No Known Allergies Allergy Verified 02/26/22 19:25 Review of Systems ROS Other: All systems not noted in ROS Statement are negative. <Sylvia Viera - Last Filed: 02/27/22 00:18> ROS Other: All systems not noted in ROS Statement are negative. <Boyd Schrader - Last Filed: 02/27/22 02:02> ROS Statement: Those systems with pertinent positive or pertinent negative responses have been documented in the HPI. Past Medical History Past Medical History: Atrial Fibrillation, Cancer, CVA/TIA, Hypertension Additional Past Medical History / Comment(s): MACULAR DEGENERATION, squamous cell anal cancer, endometrial cancer - on IV chemo History of Any Multi-Drug Resistant Organisms: None Reported Past Surgical History: Section, Pacemaker Additional Past Surgical History / Comment(s): RETINAL SURGERY RIGHT EYE, C/S x3, rt cataract, endometrial biopsy + CA and paracentesis - fluid positive for CA Past Anesthesia/Blood Transfusion Reactions: No Reported Reaction Type of Cardiac Device: Permanent Pacemaker Device Placement Date:: 1999 Past Psychological History: No Psychological Hx Reported Smoking Status: Former smoker Past Alcohol Use History: None Reported Past Drug Use History: None Reported - Past Family History Mother Family Medical History: Cancer Additional Family Medical History / Comment(s): BONE CANCER <Sylvia Viera - Last Filed: 02/27/22 00:18> General Exam Limitations: no limitations General appearance: alert, in distress Head exam: Present: atraumatic, normocephalic, normal inspection Respiratory exam: Present: normal lung sounds bilaterally. Absent: respiratory distress, wheezes, rales, rhonchi, stridor Cardiovascular Exam: Present: regular rate, normal rhythm, normal heart sounds. Absent: systolic murmur, diastolic murmur, rubs, gallop, clicks GI/Abdominal exam: Present: distended, tenderness (diffuse), hypoactive bowel sounds Neurological exam: Present: alert, oriented X3, CN II-XII intact Psychiatric exam: Present: normal affect, normal mood Skin exam: Present: warm, dry, intact, normal color. Absent: rash <Sylvia Viera - Last Filed: 02/27/22 00:18> Course Vital Signs 02/26/22 02/26/22 19:22 22:16 Temperature 98.4 F Pulse Rate 97 79 Respiratory 22 20 Rate Blood Pressure 128/84 135/73 O2 Sat by Pulse 95 95 Oximetry Medical Decision Making - Lab Data Result diagrams: 02/26/22 23:08 - Radiology Data Radiology results: report reviewed, image reviewed <Sylvia Viera - Last Filed: 02/27/22 00:18> - Lab Data Result diagrams: 02/26/22 23:08 02/26/22 23:08 <Boyd Schrader - Last Filed: 02/27/22 02:02> - Medical Decision Making This is a 72-year-old female who presents to the emergency department for abdominal pain and constipation. KUB x-ray reveals moderate stool burden. Lab work and ct scan ordered for further evaluation. Case signed out to ED attending with results pending. (Sylvia Viera) - Lab Data Lab Results 02/26/22 02/26/22 02/26/22 Range/Units 23:08 23:08 23:08 WBC 5.3 (3.8-10.6) k/uL RBC 4.24 (3.80-5.40) m/uL Hgb 13.9 (11.4-16.0) gm/dL Hct 41.8 (34.0-46.0) % MCV 98.6 (80.0-100.0) fL MCH 32.7 (25.0-35.0) pg MCHC 33.1 (31.0-37.0) g/dL RDW 13.4 (11.5-15.5) % Plt Count 211 (150-450) k/uL MPV 8.1 Neutrophils % 89 % Lymphocytes % 9 % Monocytes % 1 % Eosinophils % 1 % Basophils % 0 % Neutrophils # 4.7 (1.3-7.7) k/uL Lymphocytes # 0.5 L (1.0-4.8) k/uL Monocytes # 0.1 (0-1.0) k/uL Eosinophils # 0.0 (0-0.7) k/uL Basophils # 0.0 (0-0.2) k/uL Sodium 136 L (137-145) mmol/L Potassium 5.0 (3.5-5.1) mmol/L Chloride 99 (98-107) mmol/L Carbon Dioxide 25 (22-30) mmol/L Anion Gap 12 mmol/L BUN 22 H (7-17) mg/dL Creatinine 0.65 (0.52-1.04) mg/dL Est GFR (CKD-EPI)AfAm >90 (>60 ml/min/1.73 sqM) Est GFR (CKD-EPI)NonAf 89 (>60 ml/min/1.73 sqM) Glucose 149 H (74-99) mg/dL Plasma Lactic Acid Brian 1.0 (0.7-2.0) mmol/L Calcium 9.7 (8.4-10.2) mg/dL Total Bilirubin 0.8 (0.2-1.3) mg/dL AST 47 H (14-36) U/L ALT 35 H (4-34) U/L Alkaline Phosphatase 61 (38-126) U/L Total Protein 7.2 (6.3-8.2) g/dL Albumin 4.1 (3.5-5.0) g/dL Amylase 51 (30-110) U/L Lipase 74 (23-300) U/L Urine Color Urine Appearance (Clear) Urine pH (5.0-8.0) Ur Specific [place] (1.001-1.035) Urine Protein (Negative) Urine Glucose (UA) (Negative) Urine Ketones (Negative) Urine Blood (Negative) Urine Nitrite (Negative) Urine Bilirubin (Negative) Urine Urobilinogen (<2.0) mg/dL Ur Leukocyte Esterase (Negative) 02/26/22 Range/Units 23:35 WBC (3.8-10.6) k/uL RBC (3.80-5.40) m/uL Hgb (11.4-16.0) gm/dL Hct (34.0-46.0) % MCV (80.0-100.0) fL MCH (25.0-35.0) pg MCHC (31.0-37.0) g/dL RDW (11.5-15.5) % Plt Count (150-450) k/uL MPV Neutrophils % % Lymphocytes % % Monocytes % % Eosinophils % % Basophils % % Neutrophils # (1.3-7.7) k/uL Lymphocytes # (1.0-4.8) k/uL Monocytes # (0-1.0) k/uL Eosinophils # (0-0.7) k/uL Basophils # (0-0.2) k/uL Sodium (137-145) mmol/L Potassium (3.5-5.1) mmol/L Chloride (98-107) mmol/L Carbon Dioxide (22-30) mmol/L Anion Gap mmol/L BUN (7-17) mg/dL Creatinine (0.52-1.04) mg/dL Est GFR (CKD-EPI)AfAm (>60 ml/min/1.73 sqM) Est GFR (CKD-EPI)NonAf (>60 ml/min/1.73 sqM) Glucose (74-99) mg/dL Plasma Lactic Acid Brian (0.7-2.0) mmol/L Calcium (8.4-10.2) mg/dL Total Bilirubin (0.2-1.3) mg/dL AST (14-36) U/L ALT (4-34) U/L Alkaline Phosphatase (38-126) U/L Total Protein (6.3-8.2) g/dL Albumin (3.5-5.0) g/dL Amylase (30-110) U/L Lipase (23-300) U/L Urine Color Yellow Urine Appearance Clear (Clear) Urine pH 6.5 (5.0-8.0) Ur Specific [place] 1.014 (1.001-1.035) Urine Protein Negative (Negative) Urine Glucose (UA) Negative (Negative) Urine Ketones Negative (Negative) Urine Blood Negative (Negative) Urine Nitrite Negative (Negative) Urine Bilirubin Negative (Negative) Urine Urobilinogen 2.0 (<2.0) mg/dL Ur Leukocyte Esterase Negative (Negative) Disposition <Sylvia Viera - Last Filed: 02/27/22 00:18> Is patient prescribed a controlled substance at d/c from ED?: No <Boyd Schrader - Last Filed: 02/27/22 02:02> Clinical Impression: Abdominal pain Disposition: HOME SELF-CARE Condition: Good Instructions (If sedation given, give patient instructions): Abdominal Pain (ED) Referrals: Bonnie Sierra MD [Primary Care Provider] - 1-2 days
[2022-02-26 23:46] LABS: Basophils % (A) 0 %; Eosinophils % (A) 1 %; HCT 41.8 % (34.0-46.0); HGB 13.9 gm/dL (11.4-16.0); Lymphocytes # (A) 0.5 k/uL (1.0-4.8); Lymphocytes % (A) 9 %; MCH 32.7 pg (25.0-35.0); MCHC 33.1 g/dL (31.0-37.0); MCV 98.6 fL (80.0-100.0); Mean Platelet Volume 8.1; Monocytes # (A) 0.1 k/uL (0-1.0); Monocytes % (A) 1 %; Neutrophils # (A) 4.7 k/uL (1.3-7.7); Neutrophils % (A) 89 %; Platelet Count 211 k/uL (150-450); RBC 4.24 m/uL (3.80-5.40); RDW 13.4 % (11.5-15.5); WBC 5.3 k/uL (3.8-10.6)
[2022-02-26 23:50] LABS: Appearance,Urine Clear (Clear); Bilirubin,Urine Negative (Negative); Blood,Urine Negative (Negative); Color,Urine Yellow; Glucose,Urine (UA) Negative (Negative); Ketones,Urine Negative (Negative); Leukocyte Esterase,Urine Negative (Negative); Nitrite,Urine Negative (Negative); PH, Urine 6.5 (5.0-8.0); Protein,Urine Negative (Negative); Specific Gravity,Urine 1.014 (1.001-1.035)
[2022-02-27 00:22] LABS: ALT 35 U/L (4-34); AST 47 U/L (14-36); African American GFR (CKD) >90 (>60 ml/min/1.73 sqM); Albumin 4.1 g/dL (3.5-5.0); Alkaline Phosphatase 61 U/L (38-126); Amylase 51 U/L (30-110); Anion Gap 12 mmol/L; Blood Urea Nitrogen 22 mg/dL (7-17); Calcium 9.7 mg/dL (8.4-10.2); Carbon Dioxide 25 mmol/L (22-30); Chloride 99 mmol/L (98-107); Glucose 149 mg/dL (74-99); Lipase 74 U/L (23-300); Non-African American GFR(CKD) 89 (>60 ml/min/1.73 sqM); Sodium 136 mmol/L (137-145); Total Bilirubin 0.8 mg/dL (0.2-1.3); Total Protein 7.2 g/dL (6.3-8.2)
--- NOTE | 2022-02-27 01:48 | CT ---
EXAMINATION TYPE: CT abdomen pelvis w con DATE OF EXAM: 02/27/2022 COMPARISON: 01/27/2022 HISTORY: Abd pain CT DLP: 2365.8 mGycm Automated exposure control for dose reduction was used. CONTRAST: Performed with IV Contrast, patient injected with 100 mL of Isovue 300. Images obtained from the diaphragm to the floor of the pelvis with IV contrast. The lung bases show small left pleural effusion. Heart size is normal. No pericardial effusion. There is abdominal ascites. Liver shows no focal defect. There is a 1.5 cm calcified gallstone. The bile d ucts are not dilated. Spleen is intact. No evidence of pancreatic mass. The stomach is intact. There is no adrenal mass. Kidneys show satisfactory contrast opacification. There is delayed left ericka ed pyelogram. There is mild left side hydroureter and probably at 2 mm calculus in the distal left ur eter. The bladder distends smoothly. No inguinal hernia. There is some retained fecal material in the large bowel. No free air. The lumbar spine is intact. No compression fracture. Bony pelvis is intact. The hip joints are intact . Sacroiliac joints are intact. IMPRESSION: There is left-sided mild hydronephrosis and delayed pyelogram. This appears new compared to old exam. There is very likely small obstructing calculus in the distal left ureter. Large calcified gallstone. There is abdominal ascites fluid which is improved compared to last exam. There is small left pleural effusion slightly increased. Constipation.
[2022-02-27] MEDS ORDERED: SENNOSIDES-DOCUSATE SODIUM 1 EACH TAB PO STA (02:14)
== END 2022-02-27 05:42 | disposition home or self-care (01) ==
LOC: EC 18:39
DX: R10.9 Unspecified abdominal pain (principal); R11.2 Nausea with vomiting, unspecified; K59.00 Constipation, unspecified; I10 Essential (primary) hypertension; Z86.73 Personal history of transient ischemic attack (TIA), and cerebral infarction without residual deficits; Z86.79 Personal history of other diseases of the circulatory system; Z87.891 Personal history of nicotine dependence; Z79.01 Long term (current) use of anticoagulants; Z79.899 Other long term (current) drug therapy
CPT/HCPCS: 36415; 80053; 82150; 83605; 83690; 85025; 81003; 74018; 74177; 99284; 96374; J2405; Q9967

== ENCOUNTER 2022-03-19 07:59 | Day surgery (SDC) | payer MEDICARE ==
[2022-03-19 08:27] VITALS: RESP 16; TEMP 98.8
[2022-03-19 08:42] LABS: Mean Platelet Volume 8.3; Platelet Count 172 k/uL (150-450)
[2022-03-19 08:47] LABS: Prothrombin Time 10.7 sec (9.0-12.0)
[2022-03-19 08:57] VITALS: BP 141/82; PULSE 78
--- NOTE | 2022-03-19 09:30 | US ---
Ultrasound-guided paracentesis. DATE OF EXAM: 03/19/2022 CLINICAL HISTORY: Ascites Preliminary imaging demonstrated only a very small amount of fluid. The patient deferred procedure. IMPRESSION: 1. Discontinue paracentesis due to insufficient fluid.
== END 2022-03-19 09:20 | disposition home or self-care (01) ==
LOC: RADPROMAIN 07:59
PROVIDERS: ATTEND Internal Medicine Hematology & Oncology
DX: R18.8 Other ascites (principal); Z53.09 Procedure and treatment not carried out because of other contraindication
CPT/HCPCS: 36415; 76705; 85049; 85610

== ENCOUNTER → 2022-05-13 | Outpatient (CLI) | payer MEDICARE ==
[2022-05-13 23:37] LABS: HCT 28.7 % (37.2-46.3); HGB 9.2 g/dL (12.0-15.0); MCH 33.6 pg (27.0-32.0); MCHC 32.1 g/dL (32.0-37.0); MCV 104.7 fL (80.0-97.0); NRBC Per 100 WBC 0 /100 WBCS (0.0-0.0); Platelet Count 332 X 10*3/uL (140-440); RBC 2.74 X 10*6/uL (4.10-5.20); RDW 17.1 % (11.5-14.5); WBC 6.66 X 10*3/uL (4.50-10.00)
[2022-05-14 02:01] LABS: African American GFR (CKD) 97.6 (60.0-200.0); Anion Gap 9.5 mmol/L (10.00-18.00); Blood Urea Nitrogen 12.3 mg/dL (9.0-27.0); Carbon Dioxide 28.6 mmol/L (20.0-27.5); Non-African American GFR(CKD) 84.2 (60.0-200.0)
== END | disposition home or self-care (01) ==
LOC: LABPAT 16:30
PROVIDERS: ATTEND Internal Medicine Clinical Cardiac Electrophysiology
DX: Z01.812 Encounter for preprocedural laboratory examination (principal); I48.19 Other persistent atrial fibrillation; R00.1 Bradycardia, unspecified
CPT/HCPCS: 80051; 82565; 84520; 85027

== ENCOUNTER → 2022-05-16 | Outpatient (CLI) | payer MEDICARE ==
--- NOTE | 2022-05-16 14:46 | US ---
EXAMINATION TYPE: US venous doppler duplex LE BI DATE OF EXAM: 05/16/2022 2:36 PM COMPARISON: NONE CLINICAL HISTORY: R60.0 LOCALIZED EDEMA. swelling, no h/o dvt SIDE PERFORMED: Bilateral TECHNIQUE: The lower extremity deep venous system is examined utilizing real time linear array sonog twan with graded compression, doppler sonography and color-flow sonography. VESSELS IMAGED: Common Femoral Vein Deep Femoral Vein Greater Saphenous Vein * Femoral Vein Popliteal Vein Small Saphenous Vein * Proximal Calf Veins (* superficial vessels) Right Leg: Negative for DVT Left Leg: Negative for DVT IMPRESSION: No evidence of DVT
== END | disposition home or self-care (01) ==
LOC: RADUSWWP 14:07
PROVIDERS: ATTEND Internal Medicine
DX: R60.0 Localized edema (principal)
CPT/HCPCS: 93970

== ENCOUNTER → 2022-05-19 | Day surgery (SDC) | payer MEDICARE ==
[2022-05-15 12:27] VITALS: BMI 40.3
[~2022-05-19] MED LIST: ACETAMINOPHEN IV (For NPO) 1,000 MG in EMPTY BAG 1 BAG IVPB ONE; ACETAMINOPHEN TAB 325 MG TAB PO PRN; HYDROmorphone (PF) 1 MG/ML ONE; IV FLUID CONTINUATION 900 ML IV ONE; LIDOCAINE 1% INJ 10MG/ML (30 ML VIAL-PF) SQ ONE; MIDAZOLAM 2 MG/2 ML VIAL ONE; PROPOFOL 10 MG/ML 20 ML VIAL IV ONE; SODIUM CHLORIDE 0.9% 1,000 ML IV ONE; SODIUM CHLORIDE 0.9% 1,000 ML IV SCH; SODIUM CHLORIDE 0.9% 500 ML 500 ML IV ONE; VANCOMYCIN 1,000 MG VIAL IVPB ONE; VANCOMYCIN 1,750 MG in SODIUM CHLORIDE 0.9% 500 ML 500 ML IVPB ONE; VANCOMYCIN 1,750 MG in SODIUM CHLORIDE 0.9% 500 ML 500 ML IVPB PRN; ceFAZolin 1 GM in SODIUM CHLORIDE 0.9% IRRIG BTL 250 ML IRRIGATION PRN; fentaNYL (PF) 50 MCG/ML 2 ML AMP ONE
[2022-05-19 12:00] VITALS: RESP 16; TEMP 98.5
--- NOTE | 2022-05-19 17:01 | P.EPPROC ---
- EP Procedure Note Electrophysiology Procedure Note: Diagnosis Symptomatic bradycardia status post dual-chamber pacemaker Device at end-of-life Patient recently underwent hysterectomy and chemotherapy Procedure Dual-chamber pacemaker generator change New pectoral subfascial pocket Cinefluoroscopy of the leads and the pocket Details Patient was brought to the EP lab in a fasting state. Written informed consent was obtained prior to the procedure. Conscious sedation provided. IV antibiotics administered. Local anesthesia administered. The pacemaker generator was literally over the right shoulder joint Cinefluoroscopy was performed to identify the pacemaker generator and leads prior to making an incision The right atrial lead was in stable position, passive lead The RV lead was in the right ventricular apex Pacing threshold 1.25 V at 0.5 ms R waves 7 mV pacing impedance 460 ohms A 4 cm incision made in the pectoral area. A new pectoral Subfascial pocket made. The pacemaker generator was removed from the left shoulder area line the leads were wrapped within a very calcified capsule which is kept intact The ms of RA and RV leads were carefully freed and that interrogated Impedances are stable thresholds were excellent The old generator was explanted With the generator was implanted, [employer] MRI model #2272 Dual-chamber pacemaker device connected to the leads and placed in the subfascial pocket Patient tolerated the procedure well without acute complications Pacemaker programmed to provide backup pacing Patient tolerated the procedure well without any acute complications
[2022-05-19 20:15] VITALS: BP 141/77; PULSE 71
== END ==
LOC: CATHEP 11:20
PROVIDERS: ATTEND Internal Medicine Clinical Cardiac Electrophysiology
DX: R00.1 Bradycardia, unspecified (principal); I10 Essential (primary) hypertension; I48.91 Unspecified atrial fibrillation; H35.30 Unspecified macular degeneration; Z79.01 Long term (current) use of anticoagulants; Z79.899 Other long term (current) drug therapy
CPT/HCPCS: 33228; C1785; J2250; J3370; J0690; J2001; J3010; J1170; J0131; J2704

== ENCOUNTER → 2022-07-02 | Outpatient (CLI) | payer MEDICARE ==
--- NOTE | 2022-07-02 13:39 | P.PN ---
Subjective DATE: 07/02/2022 FOLLOW UP VISIT. Patient with obstructive sleep apnea hypopnea syndrome return to sleep center for follow-up visit. Information from previous visit have been reviewed. Patient is using PAP equipment every night for the whole night, getting PAP supplies in time. The patient does not have significant problems with the mask and PAP unit. Patient complaint on condensation of water in situ of the tube. [place] sleepiness scale is 6, which is normal. I checked information from PAP unit. Heating in the heated tube is off. PAP unit pressure 10 cm H2O. Usage is 139/180 nights, average 7.6 hours per night. Leak is 23 l/m, which is in acceptable range. Apnea Hypopnea Index is 3.1, which is normal. MEDICATIONS:1. Gabapentin 100 mg twice a day 2. Metoprolol 50 mg twice a day 3. Allopurinol 100 mg once a day 4. Lisinopril 5 mg twice a day 5. Hydrocodone 6. Eliquis 5 mg twice a day During physical exam: GENERAL: A pleasant patient without any distress. VITAL SIGNS: BP 149/87, HR 64, RR 18 , weight 237.4, temperature 96.6, oxygen saturation at room air 98 % . HEENT: PERRLA, EOMI.low position of soft palate . NECK: Supple. No JVD. LUNGS: Clear to percussion and to auscultation. Good air exchange. No wheezing or rhonchi. HEART: S1, S2 regular. ABDOMEN: Soft and nontender.[] EXTREMITIES: No clubbing or cyanosis. SHROUDMAN: Awake, alert, and oriented x3. No focal deficit. Impressions: 1. Obstructive sleep apnea-hypopnea syndrome. Patient demonstrated great compliance with treatment, benefiting from treatment. 2. Hypertension. 3. History of lateral fibrillation. 4. History of stroke. 5. status post ovarian cancer and abdominal cancer surgical treatment and chemotherapy in 2021. 6. Status post permanent pacemaker insertion. 7. History of an anal carcinoma , status post chemotherapy and radiation therapy. 8. [] history of gout . 9. [] history of macular degeneration. Plan: 1. Continue using PAP equipment every night for the whole night. I adjusted temperature in the tube to 80. 2. To change air filter at least 1-2 times per month. 3. PAP unit should stay lower then position of the head. 4. Advised patient to remove all remaining water from humidifier canister daily and make it dry after each usage. Refill canister with fresh distilled water before each usage. 5. Sleep hygiene with regular time in bed for at least 8 hours. 6. Precautions related to driving. No driving if feel any sleepiness. 7. I will maintain prescription for PAP supplies including mask, tube, filters. 8. Follow up visit in 6 months or earlier if patient has any problems. 9. Watching weight. Thank you very much for allowing me to participate in the management of your patient. Harshil Kennedy MD, PhD, FAASM. Diplomat of [place] [employer], Sleep Medicine Board by [place] [employer] [facility]
== END ==
LOC: SLEEP 10:43
PROVIDERS: ATTEND Internal Medicine
DX: G47.33 Obstructive sleep apnea (adult) (pediatric) (principal); Z99.89 Dependence on other enabling machines and devices; I10 Essential (primary) hypertension; Z86.79 Personal history of other diseases of the circulatory system; Z98.890 Other specified postprocedural states; Z87.39 Personal history of other diseases of the musculoskeletal system and connective tissue; Z86.69 Personal history of other diseases of the nervous system and sense organs; Z92.21 Personal history of antineoplastic chemotherapy; Z92.3 Personal history of irradiation; Z95.0 Presence of cardiac pacemaker; Z87.891 Personal history of nicotine dependence
CPT/HCPCS: 99212

== ENCOUNTER → 2022-08-01 | Outpatient (CLI) | payer MEDICARE ==
[2022-08-01 13:14] LABS: African American GFR (CKD) >90 (>60 ml/min/1.73 sqM); Blood Urea Nitrogen 19 mg/dL (7-17); Non-African American GFR(CKD) 88 (>60 ml/min/1.73 sqM)
--- NOTE | 2022-08-01 14:37 | CT ---
EXAMINATION: CT CHEST, ABDOMEN AND PELVIS WITH IV CONTRAST DATE OF EXAMINATION: 2022. COMPARISON: CT abdomen and pelvis on 02/27/2022 and CTA chest on 02/18/2022. INDICATION: Neoplasm of the uterus. PROCEDURE: Axial CT of the chest, abdomen and pelvis was performed following the intravenous adminis tration of 70 ml Isovue 300. Coronal and sagittal reformats were performed. CT dose lowering techniq ues were used, to include: automated exposure control, adjustment for patient size, and/or use of ite rative reconstruction. FINDINGS: CHEST: Mediastinum and Mima: There is no axillary, mediastinal or hilar lymphadenopathy. Pleural and Pericardial spaces: There are no pleural or pericardial effusions. Cardiovascular: There is mild vascular calcification thoracic aorta without evidence of aneurysmal di lation or dissection. A pacemaker generator is unchanged. Pulmonary Artery: There are no central pulmonary arterial filling defects. Lung Parenchyma and Airways: There is a 4 mm pulmonary nodule in the right upper lobe on series 4 terrell ge 27 which is unchanged. Lungs otherwise appear clear. There is no focal area of consolidation. ABDOMEN: Liver and Biliary system: Normal. Adrenal glands: Thickening of the left adrenal gland is unchanged. The right adrenal is within mary grace l limits.. Kidneys and ureters: There is mild left-sided hydronephrosis and dilation of the ureter down to the level of the distal ureter. This may be compressed by some soft tissue density within the left pelvic region. This is similar to slightly more prominent than the previous examination. The right kidney i s unremarkable Spleen: Normal. Pancreas: Normal. Gallbladder: There is a calcified gallstone within the gallbladder which is unchanged. Lymph nodes, Peritoneum and mesentery: Previously seen omental caking has predominantly resolved. Th ere appears to be some mild residual minimal nodularity remaining. The ascites has resolved. Gastrointestinal tract: There are no dilated loops of bowel or free intraperitoneal air. . Is no ev idence of appendicitis. There is mild sigmoid colonic diverticulosis without evidence of diverticulit is. Aorta/IVC: There is mild vascular calcification within the abdominal aorta without evidence of aneu rysmal dilation or dissection. IVC normal. Abdominal wall: Surgical changes within the abdominal wall with a vertical surgical incision. There is mild seen within the abdominal wall which likely relates to surgical changes there are mild inflam matory changes. PELVIS: Fluid: There is no free fluid in the pelvis. Lymph Nodes: There is no pelvic or inguinal lymphadenopathy.. Urinary bladder: Normal. BONES: There are no osseous destructive lesions.. ADDITIONAL SIGNIFICANT FINDINGS: All hysterectomy. There is some surgical changes and soft tissue d ensity within the lower pelvic region which may relate to the surgical changes. Some residual disease would be difficult to entirely exclude.. IMPRESSION: 1. Interval hysterectomy with soft tissue density and some mild fluid seen within the resection bed. Residual disease with the difficult to entirely exclude. 2. There is near complete resolution of the omental caking. There appears to be some minimal residual nodularity within left upper quadrant anterior to the stomach. 3. Mild left-sided hydronephrosis which is very similar to the previous examination. The distal urete r could potentially be compressed by some soft tissue density within the pelvis. This is very similar to slightly more prominent than the previous examination. 4. Unchanged right upper lobe pulmonary nodule. No new pulmonary nodules are seen. 5. Cholelithiasis. 6. Unchanged mild thickening and nodularity of the left adrenal gland.
== END | disposition home or self-care (01) ==
LOC: RADCTMAIN 12:06
PROVIDERS: ATTEND Internal Medicine Hematology & Oncology
DX: C54.9 Malignant neoplasm of corpus uteri, unspecified (principal); K80.20 Calculus of gallbladder without cholecystitis without obstruction; E27.9 Disorder of adrenal gland, unspecified; R91.1 Solitary pulmonary nodule; N13.30 Unspecified hydronephrosis; Z90.710 Acquired absence of both cervix and uterus
CPT/HCPCS: 82565; 84520; 71260; 74177; 36415; Q9967

== ENCOUNTER → 2022-10-01 | Outpatient (CLI) | payer MEDICARE ==
[2022-10-01 14:30] LABS: African American GFR (CKD) >90 (>60 ml/min/1.73 sqM); Blood Urea Nitrogen 22 mg/dL (7-17); Non-African American GFR(CKD) 79 (>60 ml/min/1.73 sqM)
--- NOTE | 2022-10-02 07:21 | CT ---
EXAMINATION TYPE: CT angio head neck DATE OF EXAM: 10/01/2022 HISTORY: r/o TIA, headaches and memory loss. Giant cell arteritis per order. COMPARISON: CTA [facility] [place] 2013. CT brain 2013. CT DLP: 612 mGycm. Automated Exposure Control for Dose Reduction was Utilized. TECHNIQUE: CTA scan of the head and neck is performed with IV Contrast, patient injected with 65 mL of Isovue 370, axial images are obtained, coronal and sagittal reformatted images are reviewed. 3D re constructed images are created on an independent workstation and reviewed. FINDINGS: Carotid/Vascular Structures: Normal 3 vessel origin from the aortic arch without significant stenosis . No significant focal plaque or stenosis along the common carotid arteries bilaterally. Mild periphe ral plaque in the proximal internal carotid artery bilaterally without significant stenosis. Patent e xternal carotid arteries bilaterally without significant stenosis . Vertebral arteries are patent to the basilar junction. Dominant right vertebral artery is redemonstra johan. Hypoplastic bilateral posterior communicating arteries are noted. There is no significant focal stenosis or aneurysm in the posterior circulation. Images of the anterior circulation show patent ant erior communicating artery. There is no significant focal stenosis or aneurysm. Other: Noncontrast CT shows no acute intracranial hemorrhage or midline shift. There is mild ventricu lar and sulcal prominence which is progressed from 2014. There is moderate low attenuation in the per iventricular white matter which has progressed from 2014. Old infarct inferior left parietal occipita l region is redemonstrated. Hyperostosis frontal is is seen. There is 1.2 cm low dense right thyroid nodule axial image 48. Focal mild linear scarring in the visu alized right upper lung is noted. There is a left chest wall pacemaker device partially imaged. There is spurring and disc space narrowing at C5-C6 level. IMPRESSION: No significant stenosis in common or internal carotid arteries bilaterally. No significa nt stenosis or aneurysm at the level of the [facility] [place]. NASCET criteria was used in interpretation of this exam?
== END | disposition home or self-care (01) ==
LOC: RADCTMAIN 13:19
PROVIDERS: ATTEND Internal Medicine
DX: M31.6 Other giant cell arteritis (principal)
CPT/HCPCS: 82565; 84520; 70496; 70498; 36415; Q9967